=== PATIENT | female | born 1970 | race Caucasian/White ===

== ENCOUNTER 2016-08-15 13:06 | Emergency (ER) | payer BC ==
[~2016-08-15] VITALS: Wt 81.6 kg
[~2016-08-15 13:06] MED LIST: ALLEGRA180 MG PO; AMOXIL500 MG PO; ATIVAN0.5 MG PO; BACTRIM DS 8001 TA1 PO; CEPHALEXIN500 M1 PO; HYDROCODONE BIT1 T11 PO; SUDAFED60 MG PO; TRAMADOL HCL50 MG PO; ZOLOFT100 MG PO
[2016-08-15] MEDS ORDERED: LEXAPRO20 MG PO (13:12)
[2016-08-15] MEDS ORDERED: TOVIAZ8 MG PO (13:12)
[2016-08-15] MEDS ORDERED: AMBIEN5 MG PO (13:12)
[2016-08-15] MEDS ORDERED: ATIVAN0.5 MG PO (13:12)
== END 2016-08-15 14:30 | disposition home or self-care (01) ==
LOC: ED 13:06
DX: S01.01XA Laceration without foreign body of scalp, initial encounter (principal); Z90.710 Acquired absence of both cervix and uterus; Z98.51 Tubal ligation status; Z90.49 Acquired absence of other specified parts of digestive tract; Z79.899 Other long term (current) drug therapy; Z88.8 Allergy status to other drugs, medicaments and biological substances; W20.8XXA Other cause of strike by thrown, projected or falling object, initial encounter; Y93.89 Activity, other specified; Y92.89 Other specified places as the place of occurrence of the external cause; Y99.9 Unspecified external cause status

== ENCOUNTER → 2018-09-03 | Outpatient (CLI) | payer BC ==
[~2018-09-03] MED LIST changes: +AMBIEN5 MG PO; +ANAPROX DS550 MG PO; +BUSPIRONE HCL30 MG PO; +LEXAPRO20 MG PO; +OMEPRAZOLE40 MG PO; +OXYBUTYNIN CHLO10 MG PO; +PHARMASSURE FO0.4 MG PO; +ROBAXIN500 M1 PO; +TOVIAZ8 MG PO; +TRINTELLIX20 MG PO; +VITAMIN D10000 UNIT PO
== END | disposition home or self-care (01) ==
LOC: MAMMO 14:00
DX: Z12.31 Encounter for screening mammogram for malignant neoplasm of breast (principal)

== ENCOUNTER 2018-12-02 16:29 | Emergency (ER) | payer OTHER, BC ==
[~2018-12-02] VITALS: Ht 160 cm; Wt 95.3 kg
[~2018-12-02 16:29] MED LIST changes: -ANAPROX DS550 MG PO; -BUSPIRONE HCL30 MG PO; -OMEPRAZOLE40 MG PO; -OXYBUTYNIN CHLO10 MG PO; -PHARMASSURE FO0.4 MG PO; -ROBAXIN500 M1 PO; -TRINTELLIX20 MG PO; -VITAMIN D10000 UNIT PO
[2018-12-02] MEDS ORDERED: PHARMASSURE FO0.4 MG PO (16:37)
[2018-12-02] MEDS ORDERED: OMEPRAZOLE40 MG PO (16:37)
[2018-12-02] MEDS ORDERED: BUSPIRONE HCL30 MG PO (16:37)
[2018-12-02] MEDS ORDERED: TRINTELLIX20 MG PO (16:38)
[2018-12-02] MEDS ORDERED: VITAMIN D10000 UNIT PO (16:38)
[2018-12-02] MEDS ORDERED: OXYBUTYNIN CHLO10 MG PO (16:38)
[2018-12-02] MEDS ORDERED: ANAPROX DS550 MG PO (18:25)
[2018-12-02] MEDS ORDERED: ROBAXIN500 M1 PO (18:25)
== END 2018-12-02 19:08 | disposition home or self-care (01) ==
LOC: ED 16:29
DX: S50.01XA Contusion of right elbow, initial encounter (principal); T14.8XXA Other injury of unspecified body region, initial encounter; M54.6 Pain in thoracic spine; M54.5 Low back pain; Z88.1 Allergy status to other antibiotic agents; Z79.899 Other long term (current) drug therapy; V47.5XXA Car driver injured in collision with fixed or stationary object in traffic accident, initial encounter; Y93.89 Activity, other specified; Y92.413 State road as the place of occurrence of the external cause; Y99.8 Other external cause status

== ENCOUNTER → 2018-12-14 | Outpatient (CLI) | payer BC ==
[~2018-12-14] MED LIST changes: +ANAPROX DS550 MG PO; +BUSPIRONE HCL30 MG PO; +OMEPRAZOLE40 MG PO; +OXYBUTYNIN CHLO10 MG PO; +PHARMASSURE FO0.4 MG PO; +ROBAXIN500 M1 PO; +TRINTELLIX20 MG PO; +VITAMIN D10000 UNIT PO
== END | disposition home or self-care (01) ==
LOC: US 09:29
DX: R11.10 Vomiting, unspecified (principal)

== ENCOUNTER 2019-09-29 22:59 | Inpatient (IN) | payer BC ==
[~2019-09-29] VITALS: Ht 160 cm; Wt 97.6 kg
[2019-09-29 23:05] VITALS: BP 112/86
[2019-09-29 23:57] LABS: HEMATOCRIT 42.8 % (37.0-47.0); MEAN CELL VOLUME 89.2 fl (81.0-99.0); MEAN CORPUSCULAR HGB 29.4 pg (27.0-31.0); MEAN CORPUSCULAR HGB CONC 32.9 g/dl (33.0-37.0); MEAN PLATELET VOLUME 8.9 fl (9.6-12.3); PLATELET COUNT AUTOMATED 247 10*3/uL (130-400); RED CELL DISTRI WIDTH 13.8 % (0-14.5); WHITE BLOOD COUNT 16.9 10*3/uL (4.8-10.8)
[2019-09-30 00:13] LABS: ALBUMIN 3.6 gm/dl (3.1-4.5); ALKALINE PHOSPHATASE 98 U/L (45-117); BUN 21 mg/dl (7-24); CHLORIDE 104 mmol/L (98-107); CREATININE 0.82 mg/dL (0.55-1.02); POTASSIUM 3.6 mmol/L (3.5-5.1); SGOT/AST 10 IU/L (3-35); SGPT/ALT 25 U/L (12-78); SODIUM 137 mmol/L (136-145); TOTAL PROTEIN 7.6 gm/dL (6.4-8.2)
[2019-09-30 00:18] LABS: BILIRUBIN NEGATIVE (NEGATIVE); BLOOD 3+ (NEGATIVE); CLARITY SL CLOUDY (CLEAR); COLOR YELLOW (YELLOW); GLUCOSE NEGATIVE (NEGATIVE); KETONE NEGATIVE (NEGATIVE); LEUKO ESTERASE 2+ (NEGATIVE); NITRITE NEGATIVE (NEGATIVE); UROBILINOGEN 0.2 E.U./dl (0.2-1.0)
[2019-09-30 00:22] LABS: BASOPHILS 1 % (0-1); PLATELET SUFFICIENCY NORMAL (NORMAL); TOTAL CELLS COUNTED 100 #CELLS
[2019-09-30 00:28] LABS: EPITHELIAL CELLS 16-20; RBC 21-30 rbc/hpf (0-2); WBC 16-20 wbc/hpf (0-5)
[2019-09-30 00:29] LABS: BACTERIA TRACE
[2019-09-30 02:37] VITALS: BP 134/87
[2019-09-30 03:15] VITALS: BP 121/70
[2019-09-30] MEDS ORDERED: MEDROL DOSEPAK4 MG PO (03:25)
[2019-09-30 08:00] VITALS: BP 112/66
[2019-09-30 12:00] VITALS: BP 105/53
[2019-09-30 16:00] VITALS: BP 111/73
[2019-09-30 20:00] VITALS: BP 111/66
[2019-10-01] VITALS: BP 113/70
[2019-10-01 07:17] LABS: BASO % 0.3 % (0.0-1.0); EOS # 0.1 10*3/uL (0.0-0.4); EOS % 1.2 % (1.0-4.0); HEMATOCRIT 38.6 % (37.0-47.0); LYMPH # 3.2 10*3/uL (1.3-4.4); LYMPH % 27.6 % (27.0-41.0); MEAN CELL VOLUME 91.5 fl (81.0-99.0); MEAN CORPUSCULAR HGB 29.1 pg (27.0-31.0); MEAN CORPUSCULAR HGB CONC 31.9 g/dl (33.0-37.0); MEAN PLATELET VOLUME 9.4 fl (9.6-12.3); MONO # 1.1 10*3/uL (0.1-1.0); MONO % 9.8 % (3.0-9.0); NEUT % 60.6 % (47.0-73.0); PLATELET COUNT AUTOMATED 204 10*3/uL (130-400); RED BLOOD COUNT 4.22 10*6/uL (4.10-5.10); RED CELL DISTRI WIDTH 13.7 % (0-14.5); WHITE BLOOD COUNT 11.5 10*3/uL (4.8-10.8)
[2019-10-01 07:33] LABS: BUN 13 mg/dl (7-24); CHLORIDE 107 mmol/L (98-107); CHOLESTEROL 140 mg/dL (<200); CREATININE 0.72 mg/dL (0.55-1.02); HDL CHOLESTEROL 51 mg/dl (40-60); LDL CHOLESTEROL 70 mg/dL (9-159); POTASSIUM 3.9 mmol/L (3.5-5.1); SODIUM 138 mmol/L (136-145); TRIGLYCERIDES 93 mg/dl (<150); VLDL CHOLESTEROL 19 mg/dL (6-40)
[2019-10-01 08:00] VITALS: BP 111/68
[2019-10-01 12:00] VITALS: BP 112/63
[2019-10-01 16:00] VITALS: BP 108/50
[2019-10-01 20:00] VITALS: BP 126/77
[2019-10-02] VITALS: BP 107/60
[2019-10-02 05:50] LABS: BASO % 0.4 % (0.0-1.0); EOS # 0.2 10*3/uL (0.0-0.4); EOS % 2.1 % (1.0-4.0); LYMPH # 3.5 10*3/uL (1.3-4.4); LYMPH % 40.9 % (27.0-41.0); MEAN CELL VOLUME 92.9 fl (81.0-99.0); MEAN CORPUSCULAR HGB CONC 31.3 g/dl (33.0-37.0); MEAN PLATELET VOLUME 8.9 fl (9.6-12.3); MONO # 0.8 10*3/uL (0.1-1.0); MONO % 8.9 % (3.0-9.0); NEUT # 4.1 10*3/uL (2.3-7.9); NEUT % 47.5 % (47.0-73.0); PLATELET COUNT AUTOMATED 193 10*3/uL (130-400); RED CELL DISTRI WIDTH 13.2 % (0-14.5); WHITE BLOOD COUNT 8.5 10*3/uL (4.8-10.8)
[2019-10-02 06:17] LABS: ALBUMIN 2.7 gm/dl (3.1-4.5); ALKALINE PHOSPHATASE 75 U/L (45-117); BUN 11 mg/dl (7-24); CHLORIDE 108 mmol/L (98-107); CREATININE 0.85 mg/dL (0.55-1.02); POTASSIUM 3.9 mmol/L (3.5-5.1); SGOT/AST 11 IU/L (3-35); SGPT/ALT 20 U/L (12-78); SODIUM 140 mmol/L (136-145); TOTAL PROTEIN 6.6 gm/dL (6.4-8.2)
[2019-10-02 08:00] VITALS: BP 108/56
[2019-10-02 12:00] VITALS: BP 141/83
[2019-10-02 16:00] VITALS: BP 130/78
[2019-10-02 20:00] VITALS: BP 116/67
[2019-10-03] VITALS: BP 104/63
[2019-10-03 06:07] LABS: BASO % 0.4 % (0.0-1.0); EOS # 0.2 10*3/uL (0.0-0.4); EOS % 2.4 % (1.0-4.0); HEMATOCRIT 37.1 % (37.0-47.0); LYMPH # 3.3 10*3/uL (1.3-4.4); MEAN CELL VOLUME 90.5 fl (81.0-99.0); MEAN CORPUSCULAR HGB 29.3 pg (27.0-31.0); MEAN CORPUSCULAR HGB CONC 32.3 g/dl (33.0-37.0); MEAN PLATELET VOLUME 9.4 fl (9.6-12.3); MONO # 0.7 10*3/uL (0.1-1.0); NEUT # 3.7 10*3/uL (2.3-7.9); NEUT % 46.9 % (47.0-73.0); PLATELET COUNT AUTOMATED 210 10*3/uL (130-400); RED CELL DISTRI WIDTH 13.1 % (0-14.5); WHITE BLOOD COUNT 7.9 10*3/uL (4.8-10.8)
[2019-10-03 06:23] LABS: BUN 10 mg/dl (7-24); CHLORIDE 110 mmol/L (98-107); CREATININE 0.89 mg/dL (0.55-1.02); SODIUM 140 mmol/L (136-145)
[2019-10-03 08:00] VITALS: BP 123/72
[2019-10-03 12:00] VITALS: BP 110/60
[2019-10-03] MEDS ORDERED: CIPROFLOXACIN500 M4 PO (12:53)
[2019-10-03] MEDS ORDERED: FLAGYL500 MG PO (12:53)
== END 2019-10-03 13:20 | disposition home or self-care (01) | DRG 392 ==
LOC: ED 22:59 → EDHOLD 09-30 02:45 → 5E 09-30 02:45
PROVIDERS: Internal Medicine Nephrology; Physician Assistant; Student in an Organized Health Care Education/Training Program; ADMIT Internal Medicine
DX: K57.80 Diverticulitis of intestine, part unspecified, with perforation and abscess without bleeding (principal); N39.0 Urinary tract infection, site not specified; F41.9 Anxiety disorder, unspecified; M25.512 Pain in left shoulder; Z88.8 Allergy status to other drugs, medicaments and biological substances; Z90.49 Acquired absence of other specified parts of digestive tract; Z90.710 Acquired absence of both cervix and uterus; Z98.51 Tubal ligation status; Z83.3 Family history of diabetes mellitus; Z79.899 Other long term (current) drug therapy; D72.829 Elevated white blood cell count, unspecified

== ENCOUNTER → 2019-10-29 | Outpatient (CLI) | payer BC ==
[~2019-10-29] MED LIST changes: +CIPROFLOXACIN500 M4 PO; +FLAGYL500 MG PO; +MEDROL DOSEPAK4 MG PO
== END | disposition home or self-care (01) ==
LOC: COVID19 02:07
DX: Z01.818 Encounter for other preprocedural examination (principal); Z11.59 Encounter for screening for other viral diseases

== ENCOUNTER → 2019-11-04 | Day surgery (SDC) | payer BC ==
[~2019-11-04] VITALS: Ht 160 cm; Wt 95.3 kg
[2019-11-04 06:58] VITALS: BP 138/60
[2019-11-04 08:05] VITALS: BP 109/58
[2019-11-04 08:20] VITALS: BP 100/58
[2019-11-04 08:35] VITALS: BP 100/68
== END | disposition home or self-care (01) ==
LOC: SDC 11-01 09:30
DX: K63.5 Polyp of colon (principal); K57.20 Diverticulitis of large intestine with perforation and abscess without bleeding; F41.9 Anxiety disorder, unspecified; F32.9 Major depressive disorder, single episode, unspecified; Z88.8 Allergy status to other drugs, medicaments and biological substances; Z98.51 Tubal ligation status; Z98.890 Other specified postprocedural states; Z79.899 Other long term (current) drug therapy

== ENCOUNTER → 2020-02-01 | Outpatient (CLI) | payer BC | END | disposition home or self-care (01) | LOC: MAMMO 16:30 | PROVIDERS: ATTEND Internal Medicine | DX: Z12.31 Encounter for screening mammogram for malignant neoplasm of breast (principal) ==

== ENCOUNTER 2022-03-21 06:01 | Inpatient (IN) | payer BC ==
[~2022-03-21] VITALS: Ht 160 cm; Wt 98.6 kg
[2022-03-21 06:33] VITALS: BP 141/83
[2022-03-21 07:15] LABS: BASO % 0.3 % (0.0-1.0); EOS # 0.2 10*3/uL (0.0-0.4); EOS % 1.1 % (1.0-4.0); HEMATOCRIT 44.4 % (37.0-47.0); LYMPH # 1.9 10*3/uL (1.3-4.4); MEAN CELL VOLUME 91.2 fl (81.0-99.0); MEAN CORPUSCULAR HGB 30.2 pg (27.0-31.0); MEAN CORPUSCULAR HGB CONC 33.1 g/dl (33.0-37.0); MEAN PLATELET VOLUME 8.9 fl (9.6-12.3); MONO # 1.2 10*3/uL (0.1-1.0); MONO % 8.4 % (3.0-9.0); NEUT # 11.2 10*3/uL (2.3-7.9); NEUT % 76.9 % (47.0-73.0); PLATELET COUNT AUTOMATED 271 10*3/uL (130-400); RED BLOOD COUNT 4.87 10*6/uL (4.10-5.10); RED CELL DISTRI WIDTH 12.9 % (0-14.5); WHITE BLOOD COUNT 14.6 10*3/uL (4.8-10.8)
[2022-03-21 07:30] LABS: ACT PARTIAL THROMBO TIME 27.8 SECONDS (20.0-32.1); ALKALINE PHOSPHATASE 106 U/L (45-117); BUN 14 mg/dl (7-24); CHLORIDE 110 mmol/L (98-107); CREATININE 0.91 mg/dL (0.55-1.02); LIPASE 139 U/L (73-393); SGPT/ALT 30 U/L (12-78); SODIUM 140 mmol/L (136-145); TOTAL PROTEIN 7.4 gm/dL (6.4-8.2)
[2022-03-21 09:05] VITALS: BP 104/66
[2022-03-21 10:20] VITALS: BP 156/74
[2022-03-21] MEDS ORDERED: PAROXETINE HCL30 MG PO (11:52)
[2022-03-21 12:00] VITALS: BP 156/89
[2022-03-21 13:05] LABS: BILIRUBIN Negative (Negative); BLOOD 1+ (Negative); CLARITY Turbid (Clear); COLOR Yellow (Yellow); GLUCOSE Negative (Negative); KETONE Trace (Negative); LEUKO ESTERASE 1+ (Negative); NITRITE Negative (Negative); PH 5.5 (4.5-8.0); SPECIFIC GRAVITY >= 1.030 (1.001-1.030)
[2022-03-21 13:14] LABS: BACTERIA 4+
[2022-03-21 16:00] VITALS: BP 143/68
[2022-03-21 20:00] VITALS: BP 133/82
[2022-03-22] VITALS: BP 115/69
[2022-03-22 06:23] LABS: BASO % 0.4 % (0.0-1.0); EOS # 0.2 10*3/uL (0.0-0.4); HEMATOCRIT 38.3 % (37.0-47.0); LYMPH # 2.8 10*3/uL (1.3-4.4); LYMPH % 27.4 % (27.0-41.0); MEAN CELL VOLUME 92.5 fl (81.0-99.0); MEAN CORPUSCULAR HGB CONC 32.4 g/dl (33.0-37.0); MONO # 0.9 10*3/uL (0.1-1.0); NEUT # 6.2 10*3/uL (2.3-7.9); PLATELET COUNT AUTOMATED 226 10*3/uL (130-400); RED BLOOD COUNT 4.14 10*6/uL (4.10-5.10); WHITE BLOOD COUNT 10.1 10*3/uL (4.8-10.8)
[2022-03-22 06:27] LABS: ALKALINE PHOSPHATASE 80 U/L (45-117); BUN 11 mg/dl (7-24); CHLORIDE 108 mmol/L (98-107); CREATININE 0.86 mg/dL (0.55-1.02); POTASSIUM 3.7 mmol/L (3.5-5.1); SGPT/ALT 34 U/L (12-78); SODIUM 141 mmol/L (136-145)
[2022-03-22 09:37] VITALS: BP 125/79
[2022-03-22 16:00] VITALS: BP 138/73
[2022-03-22 20:00] VITALS: BP 150/83
[2022-03-23] VITALS: BP 112/67
[2022-03-23 08:00] VITALS: BP 129/87
[2022-03-23 12:00] VITALS: BP 113/68
[2022-03-23 16:00] VITALS: BP 122/85
[2022-03-23 20:00] VITALS: BP 123/53
[2022-03-24] VITALS: BP 143/81
[2022-03-24 07:17] LABS: BASO % 0.3 % (0.0-1.0); EOS # 0.3 10*3/uL (0.0-0.4); EOS % 2.7 % (1.0-4.0); HEMATOCRIT 38.9 % (37.0-47.0); MEAN CELL VOLUME 89.8 fl (81.0-99.0); MEAN CORPUSCULAR HGB CONC 33.4 g/dl (33.0-37.0); MEAN PLATELET VOLUME 8.7 fl (9.6-12.3); MONO # 0.7 10*3/uL (0.1-1.0); MONO % 7.7 % (3.0-9.0); NEUT # 6.1 10*3/uL (2.3-7.9); PLATELET COUNT AUTOMATED 236 10*3/uL (130-400); RED BLOOD COUNT 4.33 10*6/uL (4.10-5.10); RED CELL DISTRI WIDTH 12.1 % (0-14.5); WHITE BLOOD COUNT 9.1 10*3/uL (4.8-10.8)
[2022-03-24 07:35] LABS: BUN 8 mg/dl (7-24); CHLORIDE 106 mmol/L (98-107); CREATININE 0.65 mg/dL (0.55-1.02); POTASSIUM 3.8 mmol/L (3.5-5.1); SGPT/ALT 30 U/L (12-78); SODIUM 137 mmol/L (136-145); TOTAL PROTEIN 6.5 gm/dL (6.4-8.2)
[2022-03-24 07:36] LABS: ALKALINE PHOSPHATASE 80 U/L (45-117)
[2022-03-24 09:00] VITALS: BP 138/75
[2022-03-24 12:00] VITALS: BP 148/91
[2022-03-24 16:10] VITALS: BP 143/98
[2022-03-24 20:00] VITALS: BP 143/90
[2022-03-25] VITALS: BP 127/87
[2022-03-25 09:00] VITALS: BP 147/83
[2022-03-25] MEDS ORDERED: METRONIDAZOLE500 M1 PO (09:55)
[2022-03-25] MEDS ORDERED: CIPROFLOXACIN500 M4 PO (09:55)
== END 2022-03-25 11:30 | disposition home or self-care (01) | DRG 379 ==
LOC: ED 06:01 → 5E 07:41 → EDHOLD 07:41 → 5E 09:59
PROVIDERS: Emergency Medicine; ADMIT Internal Medicine; ATTEND Internal Medicine
DX: K57.33 Diverticulitis of large intestine without perforation or abscess with bleeding (principal); K80.20 Calculus of gallbladder without cholecystitis without obstruction; Z88.8 Allergy status to other drugs, medicaments and biological substances; Z90.710 Acquired absence of both cervix and uterus; Z90.49 Acquired absence of other specified parts of digestive tract; Z83.3 Family history of diabetes mellitus

== ENCOUNTER → 2023-02-28 | Outpatient (CLI) | payer OTHER ==
[~2023-02-28] MED LIST changes: +METRONIDAZOLE500 M1 PO; +PAROXETINE HCL30 MG PO
== END | disposition home or self-care (01) ==
LOC: US 00:47
PROVIDERS: ATTEND Internal Medicine
DX: K76.0 Fatty (change of) liver, not elsewhere classified (principal); K76.89 Other specified diseases of liver; Z90.710 Acquired absence of both cervix and uterus

== ENCOUNTER → 2023-04-16 | Day surgery (SDC) | payer OTHER ==
[~2023-04-16] VITALS: Ht 160 cm; Wt 90.7 kg
[~2023-04-16] MED LIST changes: +VITAMIN E PO
[2023-04-16 09:19] VITALS: BP 117/71
[2023-04-16 10:55] VITALS: BP 109/56
[2023-04-16 11:10] VITALS: BP 123/71
[2023-04-16 11:25] VITALS: BP 121/79
== END | disposition home or self-care (01) ==
LOC: SDC 04-11 12:30
PROVIDERS: ATTEND Surgery
DX: Z12.11 Encounter for screening for malignant neoplasm of colon (principal); Z86.010 Personal history of colon polyps; Z87.19 Personal history of other diseases of the digestive system; Z79.899 Other long term (current) drug therapy; Z90.710 Acquired absence of both cervix and uterus; Z98.51 Tubal ligation status; Z98.890 Other specified postprocedural states

== ENCOUNTER 2023-10-27 11:22 | Emergency (ER) | payer OTHER ==
[~2023-10-27] VITALS: Ht 160 cm; Wt 93.0 kg
[2023-10-27] MEDS ORDERED: SODIUM CHLORIDE 0.9% 1,000 ML IV ONE (11:40)
[2023-10-27] MEDS ORDERED: IOHEXOL 300 MG/ML 100 ML VIAL IV ONE (11:55)
[2023-10-27 12:17] LABS: BASO % 0.4 % (0.0-1.0); EOS # 0.2 10*3/uL (0.0-0.4); EOS % 1.5 % (1.0-4.0); LYMPH # 3.1 10*3/uL (1.3-4.4); MEAN CELL VOLUME 91.1 fl (81.0-99.0); MEAN CORPUSCULAR HGB CONC 32.9 g/dl (33.0-37.0); MEAN PLATELET VOLUME 9.1 fl (9.6-12.3); MONO # 0.8 10*3/uL (0.1-1.0); MONO % 7.5 % (3.0-9.0); NEUT # 6.7 10*3/uL (2.3-7.9); NEUT % 61.2 % (47.0-73.0); PLATELET COUNT AUTOMATED 255 10*3/uL (130-400); RED BLOOD COUNT 4.94 10*6/uL (4.10-5.10); WHITE BLOOD COUNT 10.8 10*3/uL (4.8-10.8)
[2023-10-27 12:35] LABS: BUN 7 mg/dl (9-23); CHLORIDE 109 mmol/L (98-107); LIPASE 29 U/L (12-53); POTASSIUM 3.8 mmol/L (3.4-5.1)
[2023-10-27] MEDS ORDERED: HYDROCODONE-AC1 EAC1 PO (14:20)
[2023-10-27] MEDS ORDERED: CIPRO500 MG PO (14:20)
[2023-10-27] MEDS ORDERED: METRONIDAZOLE500 M1 PO (14:20)
[2023-10-27] MEDS ORDERED: METRONIDAZOLE 500 MG TAB PO ONE (14:25)
[2023-10-27] MEDS ORDERED: Ciprofloxacin Hydrochloride 500 MG TAB PO ONE (14:25)
== END 2023-10-27 14:24 | disposition home or self-care (01) ==
LOC: ED 11:22
PROVIDERS: Nurse Practitioner Family
DX: K57.32 Diverticulitis of large intestine without perforation or abscess without bleeding (principal); F32.A Depression, unspecified; Z88.8 Allergy status to other drugs, medicaments and biological substances; Z90.710 Acquired absence of both cervix and uterus; Z90.89 Acquired absence of other organs; Z90.49 Acquired absence of other specified parts of digestive tract; Z98.51 Tubal ligation status; Z98.890 Other specified postprocedural states

== ENCOUNTER → 2024-02-24 | Outpatient (CLI) | payer OTHER ==
[~2024-02-24] MED LIST changes: +CIPRO500 MG PO; +HYDROCODONE-AC1 EAC1 PO
[2024-02-24 07:42] LABS: BASO # 0.1 10*3/uL (0.0-0.1); BASO % 0.5 % (0.0-1.0); EOS # 0.3 10*3/uL (0.0-0.4); EOS % 2.5 % (1.0-4.0); HEMATOCRIT 44.1 % (37.0-47.0); LYMPH # 3.1 10*3/uL (1.3-4.4); LYMPH % 31.3 % (27.0-41.0); MEAN CELL VOLUME 91.9 fl (81.0-99.0); MEAN CORPUSCULAR HGB 29.4 pg (27.0-31.0); MEAN PLATELET VOLUME 8.9 fl (9.6-12.3); MONO # 0.9 10*3/uL (0.1-1.0); MONO % 9.2 % (3.0-9.0); NEUT # 5.6 10*3/uL (2.3-7.9); NEUT % 56.3 % (47.0-73.0); PLATELET COUNT AUTOMATED 248 10*3/uL (130-400); RED CELL DISTRI WIDTH 13.2 % (0-14.5); WHITE BLOOD COUNT 9.9 10*3/uL (4.8-10.8)
[2024-02-24 08:10] LABS: ALKALINE PHOSPHATASE 116 U/L (46-116); BUN 10 mg/dl (9-23); CHLORIDE 107 mmol/L (98-107); CHOLESTEROL 170 mg/dL (<200); FREE T4 1.01 ng/dl (0.89-1.76); LDL CHOLESTEROL 93 mg/dL (9-159); POTASSIUM 4.5 mmol/L (3.4-5.1); SGPT/ALT 18 U/L (5-49); TRIGLYCERIDES 91 mg/dl (<150)
== END | disposition home or self-care (01) ==
LOC: LAB 07:28
PROVIDERS: ATTEND Internal Medicine
DX: R79.89 Other specified abnormal findings of blood chemistry (principal); F32.9 Major depressive disorder, single episode, unspecified

== ENCOUNTER 2024-06-03 19:51 | Emergency (ER) | payer OTHER ==
[~2024-06-03] VITALS: Ht 160 cm; Wt 99.8 kg
[2024-06-03] MEDS ORDERED: CITALOPRAM20 MG PO (21:41)
[2024-06-03 21:52] LABS: BASO % 0.3 % (0.0-1.0); EOS # 0.2 10*3/uL (0.0-0.4); EOS % 1.3 % (1.0-4.0); HEMATOCRIT 43.4 % (37.0-47.0); MEAN CELL VOLUME 89.1 fl (81.0-99.0); MEAN CORPUSCULAR HGB CONC 32.5 g/dl (33.0-37.0); MEAN PLATELET VOLUME 8.9 fl (9.6-12.3); MONO # 1.1 10*3/uL (0.1-1.0); MONO % 8.4 % (3.0-9.0); NEUT # 8.3 10*3/uL (2.3-7.9); NEUT % 61.4 % (47.0-73.0); PLATELET COUNT AUTOMATED 248 10*3/uL (130-400); RED BLOOD COUNT 4.87 10*6/uL (4.10-5.10); RED CELL DISTRI WIDTH 13.7 % (0-14.5); WHITE BLOOD COUNT 13.5 10*3/uL (4.8-10.8)
[2024-06-03 22:14] LABS: ALKALINE PHOSPHATASE 114 U/L (46-116); BUN 9 mg/dl (9-23); CHLORIDE 103 mmol/L (98-107); POTASSIUM 3.8 mmol/L (3.4-5.1); SGPT/ALT 14 U/L (5-49); TOTAL PROTEIN 7.1 gm/dL (6.0-8.0)
[2024-06-03] MEDS ORDERED: METRONIDAZOLE 500 MG TAB PO ONE (22:45)
[2024-06-03] MEDS ORDERED: Ciprofloxacin Hydrochloride 500 MG TAB PO ONE (22:45)
[2024-06-03] MEDS ORDERED: Ketorolac Tromethamine 60 MG/2 ML VIAL IM ONE (22:45)
[2024-06-03] MEDS ORDERED: CIPRO500 MG PO (22:50)
[2024-06-03] MEDS ORDERED: METRONIDAZOLE500 M1 PO (22:50)
== END 2024-06-03 23:04 | disposition home or self-care (01) ==
LOC: ED 19:51
PROVIDERS: Internal Medicine
DX: A41.9 Sepsis, unspecified organism (principal); K57.32 Diverticulitis of large intestine without perforation or abscess without bleeding; D72.89 Other specified disorders of white blood cells; Z88.8 Allergy status to other drugs, medicaments and biological substances; Z90.711 Acquired absence of uterus with remaining cervical stump; Z98.51 Tubal ligation status; Z90.49 Acquired absence of other specified parts of digestive tract